=== PATIENT | male | born 1970 | race Caucasian/White ===

== ENCOUNTER 2021-07-07 18:08 | Emergency (ER) | payer OTHER ==
[~2021-07-07] VITALS: Ht 170.2 cm; Wt 83.0 kg
[~2021-07-07 18:08] MED LIST: NOHOMEMEDICATIONS; NORCO 5-325 TA1 EACH PO; PENICILLIN VK250 MG PO
[2021-07-07 18:45] LABS: BASOPHILS 0.8 % (0.0-2.0); EOSINOPHILS 3.3 % (0.0-3.0); HEMATOCRIT 39.1 % (42.0-52.0); HEMOGLOBIN 13.4 gm/dL (14.0-18.0); MCH 29.3 pg (26.0-34.0); MCHC 34.2 g/dL (28.0-37.0); MCV 85.7 fL (80.0-100.0); PLATELET COUNT 379 thou/uL (150-400); POLYS 68.9 % (36.0-66.0); RBC 4.56 mil/uL (4.50-6.00); WBC 11.7 thou/uL (4.0-11.0)
[2021-07-07 18:55] LABS: CALCIUM 8.8 mg/dL (8.5-10.1); CREATININE 0.9 mg/dL (0.7-1.3); POTASSIUM 4.1 mmol/L (3.5-5.1)
[2021-07-07 18:57] LABS: APTT 27.6 Seconds (24.5-32.8); INR 0.94; PROTIME 10.3 Seconds (10.5-12.1)
[2021-07-07] MEDS ORDERED: MOBIC7.5 MG PO (19:55)
[2021-07-07] MEDS ORDERED: ZANAFLEX4 MG PO (19:55)
[2021-07-07 20:11] VITALS: BP 135/76
== END 2021-07-07 21:18 | disposition home or self-care (01) ==
LOC: ER 18:08
PROVIDERS: Nurse Practitioner
DX: S50.811A Abrasion of right forearm, initial encounter (principal); S80.212A Abrasion, left knee, initial encounter; S80.211A Abrasion, right knee, initial encounter; I25.2 Old myocardial infarction; Z90.49 Acquired absence of other specified parts of digestive tract; Z79.899 Other long term (current) drug therapy; W31.2XXA Contact with powered woodworking and forming machines, initial encounter; Y93.89 Activity, other specified; Y92.89 Other specified places as the place of occurrence of the external cause; Y99.8 Other external cause status

== ENCOUNTER → 2021-09-08 | Emergency (ER) | payer OTHER ==
[~2021-09-08] VITALS: Ht 170.2 cm; Wt 77.1 kg
[~2021-09-08] MED LIST changes: +MOBIC7.5 MG PO; +ZANAFLEX4 MG PO
[2021-09-08 12:52] LABS: ABSOLUTE NEUTROPHILS 2.9 thou/uL (1.4-8.2); BASOPHILS 1.1 % (0.0-2.0); EOSINOPHILS 4.8 % (0.0-3.0); HEMATOCRIT 43.7 % (42.0-52.0); HEMOGLOBIN 14.9 gm/dL (14.0-18.0); LYMPHOCYTES 33.8 % (24.0-44.0); MCH 29.7 pg (26.0-34.0); MCV 87.3 fL (80.0-100.0); MONOCYTES 12.1 % (1.0-8.0); PLATELET COUNT 288 thou/uL (150-400); POLYS 48.2 % (36.0-66.0); RBC 5.01 mil/uL (4.50-6.00); RDW 13.6 % (10.5-14.5)
[2021-09-08 13:00] LABS: CREATININE 0.9 mg/dL (0.7-1.3); POTASSIUM 3.6 mmol/L (3.5-5.1)
[2021-09-08 13:10] LABS: MAGNESIUM 1.5 mg/dL (1.8-2.4); TOTAL BILIRUBIN 0.4 mg/dL (0.2-1.0); TOTAL PROTEIN 7.6 g/dL (6.4-8.2)
[2021-09-08 14:06] LABS: URINE BILIRUBIN NEGATIVE (Negative); URINE BLOOD NEGATIVE (Negative); URINE CLARITY CLEAR; URINE COLOR YELLOW; URINE GLUCOSE-RANDOM* 3+ (Negative); URINE KETONES NEGATIVE (Negative); URINE LEUKOCYTES-REFLEX NEGATIVE (Negative); URINE NITRITE-REFLEX NEGATIVE (Negative); URINE PROTEIN (DIPSTICK) NEGATIVE (Negative); URINE SPECIFIC GRAVITY 1.015 (1.005-1.035); URINE UROBILINOGEN 0.2 E.U./dl (0.2-1.0)
[2021-09-08 14:33] VITALS: BP 129/83
--- NOTE | 2021-09-09 07:16 | EKG ---
[address] [address] ELECTROCARDIOGRAM REPORT Name: FLORENCIO VINCENT Room #: [facility]ITALWilfredo[facility] [id number] Admission: 09/08/21 Attend Phys: Discharge: Date of : 68 Report #: [id number] [facility] ED Test Date: 2021-09-08 Test Time: 12:29:51 Pat Name: FLORENCIO VINCENT Department: Room: Gender: M [employer] Supervisor: MITCHELL : 1970 Requested By: Linus Krueger Order Number: [id number] MD: Mono Eckert Measurements Intervals [place] Rate: 94 P: 20 MD: 148 QRS: -41 QRSD: 104 T: 31 QT: 351 QTc: 439 Interpretive Statements Sinus rhythm Probable left atrial enlargement 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
== END ==
LOC: ER 12:23
PROVIDERS: Emergency Medicine
DX: R07.89 Other chest pain (principal); R41.0 Disorientation, unspecified; F17.210 Nicotine dependence, cigarettes, uncomplicated; I25.2 Old myocardial infarction; Z90.49 Acquired absence of other specified parts of digestive tract; Z85.038 Personal history of other malignant neoplasm of large intestine